=== PATIENT | female | born 1980 | race Hispanic/Latino ===

== ENCOUNTER 2016-07-16 19:40 | Emergency (ER) | payer SELFPAY ==
[2016-07-16] MEDS ORDERED: ZOFRAN ONE ×2 (19:52→20:43)
[2016-07-16 19:53] LABS: Basophils % (Auto) 0.4 % (0.0-1.8); Eosinophils % (Auto) 7.2 % (0.0-4.3); Hematocrit 41.6 % (30.3-42.9); Hemoglobin 14.2 gm/dl (10.1-14.3); Mean Corpuscular HGB Conc 34 % (30-34); Mean Corpuscular Hemoglobin 33 pg (28-32); Mean Corpuscular Volume 97 fl (79-97); Platelet Count 218 K/mm3 (140-440); Red Cell Distribution Width 13.8 % (13.2-15.2); White Blood Count 10.1 K/mm3 (4.5-11.0)
[2016-07-16 20:06] LABS: Anion Gap 23 mmol/L; BUN/Creatinine Ratio 18.33; Blood Urea Nitrogen 11 mg/dL (7-17); Calcium 8.9 mg/dL (8.4-10.2); Carbon Dioxide 18 mmol/L (22-30); Chloride 103.1 mmol/L (98-107); Glucose 143 mg/dL (65-100); Potassium 3.8 mmol/L (3.6-5.0); Sodium 140 mmol/L (137-145)
[2016-07-16 20:11] LABS: INR 0.97 (0.87-1.13)
[2016-07-16 20:12] LABS: Partial Thromboplastin Time 26.3 Sec. (24.2-36.6)
--- NOTE | 2016-07-16 20:28 | Cat Scan Report ---
FINAL REPORT PROCEDURE: CT HEAD/BRAIN WO CON TECHNIQUE: Computerized tomography of the head was performed without contrast material. HISTORY: neuro deficits \T\lt; 6hrs or sx present upon awakening COMPARISON: No prior studies are available for comparison. FINDINGS: A large right parietal acute intracranial hemorrhage is identified measuring 5.0 x 5.5 centimeters associated with moderate degree of a surrounding cerebral edema. There is shift of midline structures to the left by about 5 millimeters. There is a evidence of mass effect on the posterior body of left lateral ventricle. There is evidence of a mild elevation of the left lateral ventricle compared to the right. Basal cisterns are well maintained. Posterior fossa structures are unremarkable. There is an ill-defined area of hypodensity involving the left frontoparietal region measuring 2.1 x 2.4 centimeters. There is evidence of prior left frontoparietal or temporal craniotomy. IMPRESSION: Large intracerebral acute hemorrhage involving right parietal lobe associated with moderate degree surrounding cerebral edema and 5 millimeters shift of midline structures to the left. An ill-defined area of hypodensity involving the left frontoparietal region may represent any underlying mass lesion or encephalomalacia secondary to any prior hemorrhage or infarct. There is evidence of prior left-sided craniotomy Findings of this critical report were conveyed to Dr. Griffith at 8:18 p.m. EST on 07/16/2016
[2016-07-16] MEDS ORDERED: OSMITROL 20% IV ONE (20:29)
[2016-07-16] MEDS ORDERED: KEPPRA 1,000 MG/NS 0.75% 100ML 1,000 MG/100 ML BAG IV ONE (20:29)
--- NOTE | 2016-07-16 20:29 | Emergency Department Report ---
HPI - General Chief Complaint: Neuro Symptoms/Deficit Time Seen by Provider: 07/16/16 20:18 - HPI HPI: Room 1 The patient is a 35-year-old female presenting with a chief complaint of altered mental status. Family states patient has a history of metastatic melanoma to the brain received chemotherapy and radiation today at [facility]. Family states approximately one hour prior to my interview the patient began complaining of a headache, nausea/vomiting and decreased feeling on the left. Location: Central nervous system Duration: [see above] Quality: [see above] Severity: [see above] Modifying factors: [see above] Context: [see above] Mode of transportation: [not driving] ED Past Medical Hx - Past Medical History Hx of Cancer: Yes (melanoma, brain metastases) Hx Asthma: No Hx COPD: No Additional medical history: metastic melanoma - Surgical History Additional Surgical History: Inguinal and pelvic dissection, stents left groin, - Family History Family history: no significant - Social History Smoking Status: Former Smoker Substance Use Type: None - Medications Home Medications: Home Medications Medication Instructions Recorded Confirmed Last Taken Type Ciprofloxacin TAB 01/02/16 Unknown History Clopidogrel [Plavix] 75 mg PO QDAY 01/02/16 01/02/16 Unknown History Lovenox 750 mg SQ 01/02/16 Unknown History metroNIDAZOLE [Flagyl TAB] 1 tab PO 01/02/16 Unknown History oxyCODONE /ACETAMINOPHEN [Percocet PO 01/02/16 Unknown History 5/325 mg] ED Review of Systems ROS: Stated complaint: GENERAL ILLNESS Other details as noted in HPI Gastrointestinal: nausea, vomiting Neurological: headache, weakness Physical Exam - Physical Exam Physical Exam: GENERAL: The patient is well-developed well-nourished female lying on stretcher with rightward gaze appearing to be in moderate discomfort. [] HEENT: Normocephalic. Atraumatic. Patient has moist mucous membranes. NECK: Supple. Trachea midline CHEST/LUNGS: There is no respiratory distress noted. HEART/CARDIOVASCULAR: Regular. There is no tachycardia. ABDOMEN: There is no abdominal distention. SKIN: There is no diaphoresis. NEURO: The patient is awake and attempts to respond to questions. Patient able to move right upper extremity. GCS 9 MUSCULOSKELETAL: There is no evidence of acute injury. ED Course - Consultations Consultation #1: 07/16/16 20:29 [facility] transfer lined called 07/16/16 20:33 [facility] transfer line calls back stating they will call back shortly 07/16/16 20:[address] Martniez and neurointensivt who states they are on ICU diversion 07/16/16 20:55 Spoke with patient's oncologist Dr. Myers ([phone]) who states he is trying to contact the transfer center to facilitate transfer Consultation #2: 07/16/16 20:33 [facility] paged 07/16/16 20:42 [facility] states they do not have ICU beds- [facility] called- 07/16/16 21:[address] Garcia ([facility] neurosurgery)-will accept the patient in transfer Consultation #3: 07/16/16 20:57 [facility] transfer line called ED Medical Decision Making - Lab Data Result diagrams: 07/16/16 19:44 07/16/16 19:44 Laboratory Tests 07/16/16 07/16/16 07/16/16 19:44 19:44 19:44 WBC 10.1 RBC 4.30 Hgb 14.2 Hct 41.6 MCV 97 MCH 33 H MCHC 34 RDW 13.8 Plt Count 218 Lymph % (Auto) 30.1 [place] % (Auto) 5.3 Eos % (Auto) 7.2 H Baso % (Auto) 0.4 Lymph # 3.0 [place] # 0.5 Eos # 0.7 H Baso # 0.0 Seg Neutrophils % 57.0 Seg Neutrophils # 5.7 PT 12.8 INR 0.97 APTT 26.3 Thrombin Time Sodium 140 Potassium 3.8 Chloride 103.1 Carbon Dioxide 18 L Anion Gap 23 BUN 11 Creatinine 0.6 L Estimated GFR > 60 BUN/Creatinine Ratio 18.33 Glucose 143 H Calcium 8.9 Troponin T < 0.010 07/16/16 19:44 WBC RBC Hgb Hct MCV MCH MCHC RDW Plt Count Lymph % (Auto) [place] % (Auto) Eos % (Auto) Baso % (Auto) Lymph # [place] # Eos # Baso # Seg Neutrophils % Seg Neutrophils # PT INR APTT Thrombin Time 16.6 Sodium Potassium Chloride Carbon Dioxide Anion Gap BUN Creatinine Estimated GFR BUN/Creatinine Ratio Glucose Calcium Troponin T - EKG Data -: EKG Interpreted by Nh EKG shows normal: sinus rhythm Rate: normal - EKG Data When compared to previous EKG there are: no significant change Interpretation: nonspecific ST-T wave rodri (T-wave inversion in lead 3) - Radiology Data Radiology results: report reviewed (CT head), image reviewed (CT head) CT head (read by radiologist)- large right parietal intracerebral hematoma measuring 5.5 x 5.0 cm. 5 mm midline shift to the left. Basal cisterns okay. No transtentorial herniation. Subtle density change in left frontal parietal region - Differential Diagnosis intracerebral hemorrhage Critical Care Time: Yes Critical care time in (mins) excluding proc time.: 60 Critical care attestation.: If time is entered above; I have spent that time in minutes in the direct care of this critically ill patient, excluding procedure time. ED Disposition Clinical Impression: Intracranial hemorrhage, Altered mental status Disposition: DC/TX ANOTHER TYPE HEALTHCARE Is pt being admited?: No Does the pt Need Aspirin: No Condition: Critical Referrals: PRIMARY CARE, [Primary Care Provider] - 3-5 Days Time of Disposition: 21:11 (awaiting transport)
[2016-07-16] MEDS ORDERED: REGLAN ONE (20:43)
[2016-07-16] MEDS ORDERED: ZOFRAN IV ONE ×2 (20:50→20:51)
[2016-07-16] MEDS ORDERED: REGLAN IV ONE (20:50)
[2016-07-16] MEDS ORDERED: VIAFLEX EMPTY CONTAINER IV ONE (21:00)
[2016-07-16] MEDS ORDERED: OSMITROL IV ONE (21:00)
[2016-07-16 22:15] VITALS: BP 111/60
== END 2016-07-16 22:06 | disposition other institution (70) ==
LOC: ED 19:40
DX: I62.9 Nontraumatic intracranial hemorrhage, unspecified (principal); R41.82 Altered mental status, unspecified; C79.9 Secondary malignant neoplasm of unspecified site; Z87.891 Personal history of nicotine dependence
CPT/HCPCS: 36415; 70450; 80048; 84484; 85025; 85610; 85670; 85730; 93005; 93010; 96365; 96375; 96376; 99291; J1953; J2150; J2405; J2765